=== PATIENT | female | born 1950 | race Caucasian/White ===

== ENCOUNTER → 2019-06-14 10:08 | Outpatient (CLI) | payer MEDICARE, OTHER, SELFPAY ==
[2019-06-14 11:00] LABS: BUN 10 mg/dL (7-18); Creatinine, Serum 0.67 mg/dL (0.55-1.02); EST Glomerular Filtration Rate 92 mL/min (>60); Est Glom Filt Rate - Afr Amer 112 mL/min (>60)
== END ==
PROVIDERS: Referring Provider Ophthalmology; Visit Provider Ophthalmology
DX: H53.453 Other localized visual field defect, bilateral (principal)
CPT/HCPCS: 36415; 82565; 84520

== ENCOUNTER → 2019-06-21 17:38 | Outpatient (CLI) | payer MEDICARE, OTHER, SELFPAY ==
--- NOTE | 2019-06-21 17:41 | CT_ITS ---
STUDY: CT BRAIN WITH AND WITHOUT CONTRAST REASON FOR EXAM: Female, 69 years old. Peripheral visual field deficits. RADIATION DOSAGE (If Supplied By Facility): CTDIvol = ( 44.99 ) mGy, DLP = ( 1479.73 ) mGycm TECHNIQUE: Transaxial CT imaging of the brain was performed pre and post contrast administration. The examination was performed with intravenous administration of IV Isovue 370 50. Individualized dose optimization techniques were used for this CT. COMPARISON: None. FINDINGS: Normal soft tissue structures. Normal calvarium. There is mild cerebral atrophy with widening of the extra-axial spaces and ventricular dilatation. Normal white matter tracts of the cerebral hemispheres. Normal basal ganglia and thalami. Normal brainstem. Normal cerebellum. There is no intracranial hemorrhage. There are no findings of an acute ischemic infarction. Normal visualized paranasal sinuses. CT/Brain/Head W/WO Contrast IMPRESSION: Mild generalized brain atrophy otherwise normal unenhanced and enhanced CT scan of the brain. Electronically Signed: Christin Villatoro MD at 6:56 EST , Service support ,
== END ==
PROVIDERS: Referring Provider Ophthalmology; Visit Provider Ophthalmology
DX: H53.453 Other localized visual field defect, bilateral (principal)
CPT/HCPCS: 70470; Q9967